=== PATIENT | female | born 1990 | race Two or more races ===

== ENCOUNTER 2021-05-01 19:42 | Inpatient (IN) | payer MEDICAID, OTHER ==
[~2021-05-01] VITALS: Ht 175.3 cm; Wt 99.8 kg
--- NOTE | 2021-05-01 20:05 | NUR ---
BIBRA 860 FROM HOME FOR C/O BILATERAL LOWER ABD PAIN X 1 HOUR, LMP: 2 WEEKS AGO. DENIED DYSURIA OR HEMATURIA
--- NOTE | 2021-05-01 20:20 | NUR ---
LAC #20G S/L; PATENT AND INTACT. BLOOD & URINE COLLECTED AND GIVEN TO LAB
[2021-05-01 20:44] LABS: BASOPHILS # (AUTO) 0.1 K/uL (0.0-0.2); BASOPHILS % (AUTO) 0.5 % (0.0-2.0); EOSINOPHILS % (AUTO) 1.9 % (0.0-6.0); HEMATOCRIT 39 % (33-45); HEMOGLOBIN 13.2 g/dL (11.5-14.8); LYMPHOCYTES # (AUTO) 2.6 K/uL (0.8-4.8); LYMPHOCYTES % (AUTO) 21.5 % (20.0-44.0); MEAN CORPUSCULAR HGB CONC 34 g/dl (31.0-36.0); MEAN CORPUSCULAR VOLUME 84 fL (82-100); MONOCYTES # (AUTO) 0.8 K/uL (0.1-1.30); MONOCYTES % (AUTO) 6.4 % (2.0-12.0); NEUTROPHILS # (AUTO) 8.5 K/uL (1.8-8.9); NEUTROPHILS % (AUTO) 69.7 % (43.0-81.0); PLATELET COUNT (AUTO) 278 K/uL (150-450); RED BLOOD CELL COUNT(AUTO) 4.67 MIL/uL (4.0-5.2); WHITE BLOOD COUNT (AUTO) 12.2 K/uL (4.3-11.0)
[2021-05-01] MEDS ORDERED: MORPHINE SULFATE INJ 4 MG/ML DISP.SYRIN ONE ×3 (20:57→23:38)
[2021-05-01] MEDS ORDERED: MORPHINE SULFATE INJ 2 MG/ML DISP.SYRIN ONE (20:57)
[2021-05-01] MEDS ORDERED: ONDANSETRON HCL/PF 4 MG/2 ML VIAL ONE ×3 (20:57→23:38)
[2021-05-01 20:59] LABS: BILIRUBIN,URINE NEGATIVE (NEGATIVE); COLOR,URINE YELLOW (YELLOW); LEUKOCYTE ESTERASE ,URINE NEGATIVE (NEGATIVE); NITRITE, URINE NEGATIVE (NEGATIVE); PH,URINE 7.5 (5.0-8.0); PROTEIN,URINE NEGATIVE (NEGATIVE); UGLUCOSE NEGATIVE (NEGATIVE); UROBILINOGEN,URINE 0.2 EU/dL (0.2)
[2021-05-01] MEDS ORDERED: MORPHINE SULFATE INJ 2 MG/ML DISP.SYRIN IV ONE ×2 (21:00→23:30)
[2021-05-01] MEDS ORDERED: IV NS 0.9% 1,000 ML BAG IV ONE (21:00)
[2021-05-01] MEDS ORDERED: ONDANSETRON HCL/PF 4 MG/2 ML VIAL IVP ONE ×2 (21:00→23:30)
[2021-05-01 21:11] LABS: CALCIUM, SERUM 9.7 mg/dL (8.5-10.1); CREATININE 0.8 mg/dL (0.6-1.3)
[2021-05-01 21:16] LABS: ALBUMIN 3.7 g/dL (3.4-5.0); BILIRUBIN,TOTAL 0.2 mg/dL (0.2-1.0); TOTAL PROTEIN, SERUM 8.2 g/dL (6.4-8.2)
[2021-05-01] MEDS ORDERED: IOHEXOL-300 100 ML VIAL IV ONE (21:26)
--- NOTE | 2021-05-01 21:40 | NUR ---
PT TO CT VIA G[facility]
--- NOTE | 2021-05-01 22:01 | NUR ---
PT RETURNED TO ER BED [address]
[2021-05-01] MEDS: ONDANSETRON HCL/PF 4 MG/2 ML VIAL IV ONE (23:31)
--- NOTE | 2021-05-01 23:31 | NUR ---
US TECH AT PT'S BEDSIDE
--- NOTE | 2021-05-02 00:12 | NUR ---
DR LUDIVINA RICCI PER DR RAMOS.
--- NOTE | 2021-05-02 00:20 | NUR ---
EAMON ORONA PAGED FOR HIGHER LEVEL OF CARE TRANSFER.
[2021-05-02] MEDS ORDERED: diphenhydrAMINE HCL 50 MG/ML VIAL IV ONE (00:30)
--- NOTE | 2021-05-02 00:48 | NUR ---
COVID SWAB COLLECTED AND SENT TO LAB
--- NOTE | 2021-05-02 00:56 | NUR ---
EMERGENCY CONTACT: CRISTOPHER (MOM) GINA (ROOMMATE) . UPDATED GINA ON PT'S STATUS
[2021-05-02] MEDS ORDERED: ONDANSETRON HCL/PF 4 MG/2 ML VIAL ONE (02:15)
[2021-05-02] MEDS: ONDANSETRON HCL/PF 4 MG/2 ML VIAL IV ONE (02:21)
--- NOTE | 2021-05-02 02:48 | NUR ---
Call from Leanne Alejo CM, still pending bed.
--- NOTE | 2021-05-02 04:00 | NUR ---
PER EAMON ORONA, STILL PENDING [facility] AT [facility].
--- NOTE | 2021-05-02 07:14 | NUR ---
UPDATED CRISTOPHER (MOTHER) & EXPECTING HER TO DROP OFF BELONGINGS LATER
--- NOTE | 2021-05-02 07:21 | NUR ---
PAGED DR. FISH
--- NOTE | 2021-05-02 07:48 | NUR ---
SPOKE TO MOTHER CRISTOPHER [phone]
--- NOTE | 2021-05-02 07:58 | NUR ---
CALLED NURSING SUP REGARDING PT BED
--- NOTE | 2021-05-02 08:31 | NUR ---
BED GIVEN 120
--- NOTE | 2021-05-02 08:34 | NUR ---
ROOM CHANGED TO 112
--- NOTE | 2021-05-02 08:37 | NUR ---
REPORT GIVEN TO NURSE MOCK FOR HERI
--- NOTE | 2021-05-02 08:43 | NUR ---
THE PATIENT IS TRANSFERED TO ROOM 112 IN STABLE CONDITION AND PER POLICY
--- NOTE | 2021-05-02 09:00 | NUR ---
RN NOTE PATIENT TRANSFERRED TO UNIT IN STABLE CONDITION PLACED IN ROOM 112.
[2021-05-02 11:19] VITALS: BP 103/68
[2021-05-02] MEDS ORDERED: CEFTRIAXONE 2 G in IV D5W 100 ML IV SCH (12:00)
[2021-05-02] MEDS ORDERED: ONDANSETRON HCL/PF 4 MG/2 ML VIAL IV PRN (12:00)
[2021-05-02] MEDS ORDERED: CEFTRIAXONE 1 G in IV D5W 50 ML IV SCH (12:00)
[2021-05-02] MEDS ORDERED: Potassium Chloride 10 MEQ in IV NS 0.9% 1,000 ML IV SCH (12:00)
[2021-05-02] MEDS ORDERED: MORPHINE SULFATE INJ 2 MG/ML DISP.SYRIN IM PRN (12:00)
[2021-05-02] MEDS ORDERED: Potassium Chloride 10 MEQ in IV NS 0.9% 1,000 ML IV PRN (12:00)
[2021-05-02] MEDS ORDERED: ACETAMINOPHEN 650 MG/20.3 ML UDC NG PRN (12:00)
[2021-05-02] MEDS ORDERED: ZOLPIDEM TARTRATE 5 MG TABLET PO PRN (12:00)
[2021-05-02] MEDS ORDERED: HYDROCODONE/APAP 5/325MG TABLET PO PRN (12:00)
[2021-05-02] MEDS ORDERED: CEPHALEXIN MONOHYDRATE 250 MG CAPSULE PO SCH (13:00)
--- NOTE | 2021-05-02 14:00 | NUR ---
RN NOTE PATIENT EXPRESSED DESIRE TO BE TRANSFERRED TO ANOTHER HOSPITAL, AWAITING CONSULT FROM DR. EVERETT. INFORMED PATIENT THAT DR WOULD BECOMING TODAY. PATIENT EXPRESSED FRUSTRATION FOR WAIT TIME. DECIDED TO LEAVE [place].
== END 2021-05-02 14:01 | disposition left against medical advice (07) | DRG 532 ==
LOC: ER 19:45 → TRANSITION 05-02 08:13 → MEDSG1 05-02 08:32
PROVIDERS: ADMIT Internal Medicine; ATTEND Internal Medicine
DX: N83.512 Torsion of left ovary and ovarian pedicle (principal); E28.2 Polycystic ovarian syndrome; N39.0 Urinary tract infection, site not specified; Z20.822 Contact with and (suspected) exposure to COVID-19; K80.20 Calculus of gallbladder without cholecystitis without obstruction
CPT/HCPCS: 36415; 76856-TC; 80048-TC; 80076-TC; 83690-TC; 84703-TC; 85025-TC; C9803; G0378; J0696; J2270; J2405; J3480; J7030; J7050; J7060; Q9967